=== PATIENT | female | born 1955 | race Hispanic/Latino ===

== ENCOUNTER 2018-07-16 09:36 | Emergency (ER) | payer OTHER ==
[~2018-07-16] VITALS: Ht 147.3 cm; Wt 61.2 kg
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
--- NOTE | 2018-07-16 11:17 | NUR ---
robaxin script given to patient
[2018-07-17] MEDS ORDERED: DIAZEPAM 5 MG TAB PO ONE (09:00)
== END 2018-07-16 11:17 | disposition home or self-care (01) ==
LOC: ER 09:36
DX: M54.5 Low back pain (principal); M62.830 Muscle spasm of back; V43.62XA Car passenger injured in collision with other type car in traffic accident, initial encounter; Y92.488 Other paved roadways as the place of occurrence of the external cause; I10 Essential (primary) hypertension
CPT/HCPCS: 71046; 72100; 99283